=== PATIENT | female | born 1985 | race Caucasian/White ===

== ENCOUNTER 2016-12-23 12:52 | Emergency (ER) | payer MEDICAID ==
[2017-02-23] MEDS ORDERED: CEPH-443 PO (15:00)
== END 2016-12-23 15:40 | disposition home or self-care (01) ==
LOC: FTE 12:52
DX: O20.0 Threatened abortion (principal); O99.52 Diseases of the respiratory system complicating childbirth; J45.909 Unspecified asthma, uncomplicated; Z3A.01 Less than 8 weeks gestation of pregnancy
CPT/HCPCS: 76801; 81001; 84702; 85025; 86900; 86901; Z7502

== ENCOUNTER 2017-02-13 18:00 | Emergency (ER) | payer MEDICAID, OTHER ==
[~2017-02-13] VITALS: Ht 157.5 cm; Wt 78.9 kg
[2017-02-13 18:04] VITALS: Ht 157.5 cm; Wt 78.9 kg
--- NOTE | 2017-02-13 19:38 | ERD ---
ER Documentation Chief Complaint Date/Time DATE: 02/13/17 TIME: 19:29 Chief Complaint 14 weeks with dysuria and back pain x 2 days HPI 29-year-old female presents here in emergency department for complaints of dysuria, lower abdominal pain for 2 days. Patient is approximately 14 weeks . Patient denies any vaginal bleeding. Patient states that she has small amount of urine whenever she is sitting down, urinates more when she stands up. Patient denies any fever or chills. Patient denies any nausea or vomiting. Denies any diarrhea or constipation. ROS All systems reviewed and are negative except as per history of present illness. Medications Home Meds Reported Medications [none] Unknown Strength No Conflict Check 02/13/17 Allergies Allergies: Coded Allergies: No Known Allergy (Unverified , 02/13/17) PMhx/Soc Medical and Surgical Hx: pt denies Medical Hx, pt denies Surgical Hx FmHx Family History: No coronary disease, No diabetes, No other Physical Exam Vitals Vital Signs Date Time Temp Pulse Resp B/P Pulse Ox O2 Delivery O2 Flow Rate FiO2 02/13/17 18:04 98.7 82 18 143/83 99 Physical Exam GENERAL: The patient is well developed and appropriate for usual state of health, in no apparent distress. CHEST: Clear to auscultation bilaterally. There are no rales, wheezes or rhonchi. HEART: Regular rate and rhythm. No murmurs, clicks, rubs or gallops. No S3 or S4. ABDOMEN: Soft, nontender and nondistended. Good bowel sounds. No rebound or guarding. No gross peritonitis. No gross organomegaly or masses. No Liriano sign or McBurney point tenderness. BACK: No midline or flank tenderness. EXTREMITIES: Equal pulses bilaterally. There is no peripheral clubbing, cyanosis or edema. No focal swelling or erythema. Full range of motion. Grossly neurovascularly intact. NEURO: Alert and oriented. Cranial nerves 2-12 intact. Motor strength in all 4 extremities with 5/5 strength. Sensation grossly intact. Normal speech and gait. SKIN: There is no apparent rash or petechia. The skin is warm and dry. HEMATOLOGIC AND LYMPHATIC: There is no evidence of excessive bruising or lymphedema. No gross cervical, axillary, or inguinal lymphadenopathy. Result Diagram: 6/7/17 1935 6/7/17 1935 Results 24 hrs Laboratory Tests Test 02/13/17 19:00 02/13/17 19:35 Urine Color LT. YELLOW Urine Clarity SLIGHTLY CLOUDY Urine pH 6.0 Urine Specific [place] 1.020 Urine Ketones NEGATIVE Urine Nitrite NEGATIVE Urine Bilirubin NEGATIVE Urine Urobilinogen 0.2 E.U./dL Urine Leukocyte Esterase 1+ Urine Microscopic RBC 0-2/HPF Urine Microscopic WBC 25-50/HPF Urine Squamous Epithelial Cells FEW Urine Bacteria RARE Urine Hemoglobin 1+ Urine Glucose NEGATIVE% Urine Total Protein NEGATIVE White Blood Count 14.410^3/ul Red Blood Count 3.8410^6/ul Hemoglobin 11.7g/dl Hematocrit 33.8% Mean Corpuscular Volume 88.0fl Mean Corpuscular Hemoglobin 30.5pg Mean Corpuscular Hemoglobin Concent 34.6g/dl Red Cell Distribution Width 14.7% Platelet Count 57495^3/UL Mean Platelet Volume 10.3fl Neutrophils % 80.3% Lymphocytes % 11.2% Monocytes % 7.0% Eosinophils % 0.9% Basophils % 0.2% Nucleated Red Blood Cells % 0.0/100WBC Neutrophils # 11.610^3/ul Lymphocytes # 1.610^3/ul Monocytes # 1.010^3/ul Eosinophils # 0.110^3/ul Basophils # 0.010^3/ul Nucleated Red Blood Cells # 0.010^3/ul Sodium Level 140mmol/L Potassium Level 3.7mmol/L Chloride Level 106mmol/L Carbon Dioxide Level 23mmol/L Anion Gap 15 Blood Urea Nitrogen 8mg/dl Creatinine 0.55mg/dl Glucose Level 91mg/dl Calcium Level 9.3mg/dl Total Bilirubin 0.1mg/dl Direct Bilirubin 0.00mg/dl Indirect Bilirubin 0.1mg/dl Aspartate Amino Transf (AST/SGOT) 27IU/L Alanine Aminotransferase (ALT/SGPT) 36IU/L Alkaline Phosphatase 84IU/L Total Protein 7.9g/dl Albumin 4.4g/dl Globulin 3.50g/dl Albumin/Globulin Ratio 1.25 Beta HCG, Quantitative 92655.0mIU/ml Current Medications Medications (Trade) Dose Ordered Sig/Blanche Route PRN Reason Start Time Stop Time Status Last Admin Dose Admin Ceftriaxone Sodium (Rocephin) 50 ml @ 100 mls/hr ONCE ONCE IVPB 02/13/17 21:30 02/13/17 21:30 DC Ceftriaxone Sodium (Rocephin) 1 gm ONCE ONCE IM 02/13/17 21:30 02/13/17 21:31 DC 02/13/17 21:19 IV Rocephin was given here in emergency department for treatment for urinary tract infection. PROCEDURE: Obstetrical ultrasound greater than 14 weeks CLINICAL INDICATION: Right lower abdominal pain and back pain TECHNIQUE: Real time sonographic imaging of the gravid uterus is performed transabdominally and multiple static robles scale and Doppler images are submitted for review as are measurements. The images are reviewed on the PACS. COMPARISON: No relevant exams are available FINDINGS: The cervical os is closed with a normal cervical length of 4.0 cm. There is a single living intrauterine gestation in variable presentation. The heart beat is estimated at 143 bpm. The measurements are as follows: BPD: 3.03 cm HC: 11.31 cm AC: 9.30 cm FL: 1.67 cm Estimated gestational age is 15 weeks 3 days. The estimated date of delivery is 08/04/2017. The estimated weight is 119 grams. Placenta is posterior and grade 1. There is no evidence of placenta previa or abruption. The amniotic fluid is normal, the maximum vertical pocket measured at 3.32 cm. The right ovary is visualized and shows normal blood flow measured at 2.2 x 1.3 cm. The left ovary is not visualized RPTAT:HJJR IMPRESSION: 1. Single viable intrauterine gestation estimated at 15 weeks 3 days with the estimated date of delivery 08/04/2017. 2. Posterior grade 1 placenta without abruption. 3. Sonographically normal right ovary, the left ovary is not visualized. Physician Reena Date Time Electronically viewed and signed by Physician Reena on 02/13/2017 21:27 JR/ Procedures/MDM Medical Decision Making: Patient's symptoms most likely consistent with urinary tract infection, patient's back pain abdominal pain can be from the growing . Low suspicion for pyelonephritis. No CVA tenderness noted. Patient is a viable at this time. There is low suspicion for abdominal emergencies at this time. Patients abdominal exam is normal at this time. Patients radiology exam does not show any abdominal emergencies at this time, other radiology exam is not indicated at this time. There is low suspicion for appendicitis, cholecystitis, abdominal aortic aneurysms or peritonitis at this time. There is low suspicion for sepsis. Patient appears well and is hemodynamically stable. Disposition: Home. Condition: Stable Prescription Keflex, Tylenol. Instructions: Patient is advised to take medications as prescribed. Patient is advised to rest, increase fluid intake and do perineal hygiene. Patient is advised that if symptoms are worse, severe abdominal pain, uncontrolled vomiting , high fever, severe flank pain, worst signs and symptoms, to return to the emergency department immediately. Otherwise, patient can follow up with primary care doctor in 5-7 days. Departure Diagnosis: Primary Impression: UTI (urinary tract infection) Urinary tract infection type: acute cystitis Hematuria presence: without hematuria Qualified Code: N30.00 - Acute cystitis without hematuria Additional Impression: Intrauterine Condition: Stable Patient Instructions: Understanding Urinary Tract Infections (UTIs) Additional Instructions: Patient is advised to take medications as prescribed. Patient is advised to rest, increase fluid intake and do perineal hygiene. Patient is advised that if symptoms are worse, severe abdominal pain, uncontrolled vomiting, high fever, severe flank pain, worst signs and symptoms, to return to the emergency department immediately. Otherwise, patient can follow up with primary care doctor in 5-7 days. GUS FUNES NP Feb 13, 2017 19:38
[2017-02-13 19:55] LABS: ADD SCAN DIFF NO
[2017-02-13 19:57] LABS: BASOPHILS % 0.2 % (0.0-2.0); EOSINOPHILS # 0.1 10^3/ul (0.0-0.5); EOSINOPHILS % 0.9 % (0.0-7.0); HEMATOCRIT 33.8 % (37.0-47.0); HEMOGLOBIN 11.7 g/dl (12.0-16.0); LYMPHOCYTES # 1.6 10^3/ul (0.8-2.9); LYMPHOCYTES % 11.2 % (15.0-51.0); MEAN CORPUSCULAR HEMOGLOBIN 30.5 pg (29.0-33.0); MEAN CORPUSCULAR HGB CONC 34.6 g/dl (32.0-37.0); MEAN PLATELET VOLUME 10.3 fl (7.4-10.4); NEUTROPHIL # 11.6 10^3/ul (1.6-7.5); NEUTROPHILS % 80.3 % (39.0-77.0); PLATELET COUNT 279 10^3/UL (140-415); RED BLOOD COUNT 3.84 10^6/ul (4.20-5.40); RED CELL DISTRIBUTION WIDTH 14.7 % (11.5-14.5); WHITE BLOOD COUNT 14.4 10^3/ul (4.8-10.8)
[2017-02-13 20:04] LABS: ADD UMIC YES; URINE BILIRUBIN (Dip) NEGATIVE (NEGATIVE); URINE BLOOD (Dip) 1+ (NEGATIVE); URINE COLOR LT. YELLOW (YELLOW); URINE GLUCOSE (Dip) NEGATIVE (NEGATIVE); URINE KETONES (Dip) NEGATIVE (NEGATIVE); URINE LEUKOCYTE ESTERASE (Dip) 1+ (NEGATIVE); URINE NITRITE (Dip) NEGATIVE (NEGATIVE); URINE TOTAL PROTEIN (Dip) NEGATIVE (NEGATIVE); URINE UROBILINOGEN (Dip) 0.2 E.U./dL (0.1-1.0)
[2017-02-13 20:16] LABS: BACTERIA,URINE RARE; SQUAMOUS EPITHELIAL CELL,UR FEW; URINE RBCS 0-2 /HPF (0)
[2017-02-13 20:17] LABS: ALBUMIN 4.4 g/dl (3.3-4.9); ALBUMIN/GLOBULIN RATIO 1.25; BILIRUBIN,INDIRECT 0.1 mg/dl (0-1.1); BILIRUBIN,TOTAL 0.1 mg/dl (0.2-1.3); CALCIUM 9.3 mg/dl (8.4-10.2); CREATININE 0.55 mg/dl (0.44-1.00); POTASSIUM 3.7 mmol/L (3.5-5.1); TOTAL PROTEIN 7.9 g/dl (6.1-8.1)
--- NOTE | 2017-02-13 21:27 | RADRPT ---
PROCEDURE: Obstetrical ultrasound greater than 14 weeks CLINICAL INDICATION: Right lower abdominal pain and back pain TECHNIQUE: Real time sonographic imaging of the gravid uterus is performed transabdominally and mu ltiple static robles scale and Doppler images are submitted for review as are measurements. The image s are reviewed on the PACS. COMPARISON: No relevant exams are available FINDINGS: The cervical os is closed with a normal cervical length of 4.0 cm. There is a single living intrauterine gestation in variable presentation. The heart beat is e stimated at 143 bpm. The measurements are as follows: BPD:3.03 cm HC:11.31 cm AC:9.30 cm FL:1.67 cm Estimated gestational age is 15 weeks 3 days. The estimated date of delivery is 08/04/2017. The estimated weight is 119 grams. Placenta is posterior and grade 1. There is no evidence of placenta previa or abruption. The amniotic fluid is normal, the maximum vertical pocket measured at 3.32 cm. The right ovary is visualized and shows normal blood flow measured at 2.2 x 1.3 cm. The left ovary is not visualized RPTAT:HJJR IMPRESSION: 1. Single viable intrauterine gestation estimated at 15 weeks 3 days with the estimated date of deli very 08/04/2017. 2. Posterior grade 1 placenta without abruption. 3. Sonographically normal right ovary, the left ovary is not visualized. Physician Reena Date Time Electronically viewed and signed by Physician Reena on 02/13/2017 21:27 /
[2017-02-13] MEDS ORDERED: CEFTRIAXONE 1 GM/50 ML (PMX) 50 ML IVPB ONE (21:30)
[2017-02-13] MEDS ORDERED: CEFTRIAXONE 1 GM INJ IM ONE (21:30)
[2017-02-13] MEDS ORDERED: CEPH-443 PO (21:38)
[2017-02-13] MEDS ORDERED: ACET500C5 PO (21:38)
[2017-02-13 21:48] VITALS: BP 116/63; PULSE 75; RESP 17; TEMP 97.9
== END 2017-02-13 21:48 | disposition home or self-care (01) ==
LOC: FTE 18:00
DX: O23.12 Infections of bladder in pregnancy, second trimester (principal); R10.30 Lower abdominal pain, unspecified; R30.0 Dysuria; Z3A.15 15 weeks gestation of pregnancy
CPT/HCPCS: 36415; 76805; 80053; 81001; 84702; 85025; 86900; 86901; 96372; J0696; Z7502

== ENCOUNTER 2017-05-09 19:54 | Outpatient (CLI) | payer MEDICAID ==
[~2017-05-09] VITALS: Ht 157.5 cm; Wt 76.8 kg
[~2017-05-09 19:54] MED LIST: ACET500C5 PO; CEPH-443 PO
[2017-05-09 20:31] VITALS: Ht 157.5 cm; Wt 76.8 kg
[2017-05-09 20:32] VITALS: BP 117/67; PULSE 76; RESP 18
--- NOTE | 2017-05-09 22:30 | RADRPT ---
PROCEDURE: US evaluation of amniotic fluid volume. Transvaginal sonography of the cervix. CLINICAL INDICATION: labor at 28 weeks gestational age TECHNIQUE: Multiple sonographic images of the gravid uterus were obtained utilizing robles-scale kevin ging. Sagittal and transverse images were obtained. Transvaginal sonography of the cervix was also performed. The images were reviewed on a PACS workstation. INES was measured. COMPARISON: No prior studies are available for comparison. FINDINGS: There is a single live intrauterine . heart rate is 122 beats per minute. Position is cephalic. Placenta is posterior grade 1 with no abruption or previa. INES is 12.5 cm. (Normal = 5-20 cm.) Cervical length is 3.1 cm. IMPRESSION: 1. INES is 12.5 cm. 2. Cervical length is 3.1 cm. RPTAT: QQ .Lukas Campuzano MD, Date Time Electronically viewed and signed by .Lukas Campuzano MD, MD on 05/09/2017 22:29 .R/
--- NOTE | 2017-05-09 22:49 | PN ---
Triage Information Date/Time 05/09/17 Reason for visit: Abd/pelvic pain Weeks of Gestation 28w2d /Para Diabetes: none Objective Vital Signs Date Time Temp Pulse Resp B/P Pulse Ox O2 Delivery O2 Flow Rate FiO2 05/09/17 20:32 98.0 76 18 117/67 Room Air Heart Rate: 130's Contractions: >10 Minutes Apart Exam CVA neg for tenderness Results/Medications Medications on macrobid for UTI Imaging Results CVL 3.1 INES 12.5 Disposition: Discharge Assessment/Plan IUP 28w2d UTI poss round ligament syndrome PLAN discharge home contonue macrobid with increase fluid intake abdominal binder RTH prn with routine labor instructions ZEN RAMIREZ MD May 09, 2017 22:49
--- NOTE | 2017-05-09 23:04 | TRIAGE ---
OB Triage Datetime Report Generated by CPN: 05/09/2017 23:04 Datetime: 05/09/2017 22:41 Stage of : OB Triage Datetime: 05/09/2017 22:31 Stage of : OB Triage Datetime: 05/09/2017 22:02 Monitor Mode: External US FHR Baseline Changes: No Baseline Change Variability: Moderate 6-25 bpm Accelerations: 15X15 Decelerations: None Category: Category I Datetime: 05/09/2017 21:00 Stage of : OB Triage Labor Evaluation Monitor Mode: External Quality: Mild Pattern: Normal: <= 5 Contractions in 10 Minutes Resting Tone Samak: Relaxed Heart Rate FHR Baseline Rate: 140 Monitor Mode: External US FHR Baseline Changes: No Baseline Change Variability: Moderate 6-25 bpm Accelerations: 15X15 Decelerations: None Category: Category I Datetime: 05/09/2017 20:35 Vaginal Exam Membrane Status: Intact Datetime: 05/09/2017 20:25 Stage of : OB Triage Datetime: 05/09/2017 20:13 Assessment Type: Triage Maternal Assessment Level of Consciousness: Fully Conscious DTR's/Clonus: DTRs 2+; No Clonus Headache: Denies Blurred Vision: No Respiratory Effort: Unlabored; Regular Rhythm; Equal Expansion Breath Sounds, Left: Clear and Equal Breath Sounds, Right: Clear and Equal Nausea/Vomiting: Denies RUQ Epigastric Pain: Denies Facial Edema: None Fall Risk Assessment History of Falling: (0) No Secondary Diagnosis: (0) No Ambulatory Aid: (0) Bedrest/Nurse Assist IV Therapy: (0) No Gait: (0) Normal/Bedrest/Immobile Mental Status: (0) Oriented to Own Ability Fall Score: 0 Fall Risk Score Definition: No Risk: No action required Datetime: 05/09/2017 20:12 Stage of : OB Triage Assessment Type: Triage Maternal Assessment Level of Consciousness: Fully Conscious DTR's/Clonus: DTRs 2+; No Clonus Headache: Denies Blurred Vision: No Respiratory Effort: Unlabored; Regular Rhythm; Equal Expansion Breath Sounds, Left: Clear and Equal Breath Sounds, Right: Clear and Equal Nausea/Vomiting: Denies RUQ Epigastric Pain: Denies Facial Edema: None Temperature Route: Axillary Fall Risk Assessment History of Falling: (0) No Secondary Diagnosis: (0) No Ambulatory Aid: (0) Bedrest/Nurse Assist IV Therapy: (0) No Gait: (0) Normal/Bedrest/Immobile Mental Status: (0) Oriented to Own Ability Fall Score: 0 Fall Risk Score Definition: No Risk: No action required Datetime: 05/09/2017 20:10 Time of Arrival: 05/09/2017 19:29 EGA: 28.2 Arrived By: Wheelchair Arrived From: Home Chief Complaint: lower abdominal pain since yesterday, worse today at 1600 Movement: Present Contractions: Occasional Time Contractions Began: 05/09/2017 16:00 Rupture of Membranes: Denies Vaginal Bleeding: None Vaginal Discharge: Denies Recent Sexual Intercouse: Denies Abdominal Trauma: Not Applicable Patient Complaints: Contractions Time Provider Notified: 05/09/2017 20:25 Provider Notified: Dr Davila Initial Plan: EFM, VS Datetime: 05/09/2017 20:09 Time of Arrival: 05/09/2017 19:29 Datetime: 05/09/2017 20:06 Heart Rate FHR Baseline Rate: 135 Monitor Mode: External US FHR Baseline Changes: No Baseline Change Comments: PLACED ON EFM
== END 2017-05-09 22:55 | disposition home or self-care (01) ==
LOC: OBT 19:54 → L-D 19:56 → OBT 22:55
PROVIDERS: ATTEND Obstetrics & Gynecology
DX: O26.892 Other specified pregnancy related conditions, second trimester (principal); R10.2 Pelvic and perineal pain; O23.42 Unspecified infection of urinary tract in pregnancy, second trimester; Z3A.28 28 weeks gestation of pregnancy
CPT/HCPCS: 76815; 76817; Z7500; G0463

== ENCOUNTER 2017-07-23 15:05 | Inpatient (IN) | payer MEDICAID ==
[~2017-07-23] VITALS: Ht 152.4 cm; Wt 82.5 kg
[2017-07-23 15:11] VITALS: BP 117/69; PULSE 80; Ht 152.4 cm; Wt 82.5 kg
[2017-07-23] MEDS ORDERED: HYDROCODONE/APAP (5/325) TAB PO PRN (18:00)
[2017-07-23] MEDS ORDERED: IBUPROFEN 600 MG TAB PO PRN (18:00)
[2017-07-23] MEDS ORDERED: METHYLERGONOVINE 0.2 MG INJ IM PRN (18:00)
[2017-07-23] MEDS ORDERED: LIDOCAINE 1% (MPF) 30 ML INJ INJ PRN (18:00)
[2017-07-23] MEDS ORDERED: CARBOPROST 250 MCG INJ IM PRN (18:00)
[2017-07-23] MEDS ORDERED: MISOPROSTOL 200 MCG TAB PR PRN (18:00)
[2017-07-23] MEDS ORDERED: OXYTOCIN 30 UNITS/LR 500 ML IV PRN (18:00)
[2017-07-23] MEDS ORDERED: BUTORPHANOL 2 MG INJ IV PRN (18:00)
[2017-07-23] MEDS ORDERED: OXYTOCIN 30 UNITS/LR 500 ML IV SCH ×2 (18:00)
--- NOTE | 2017-07-23 18:07 | HP ---
Date/Time of Note Date/Time of Note DATE: 07/23/17 TIME: 17:49 OB - History Hx of Present Free Text/Dictation 32 years old female history of 1 previous section followed with 1 9 years ago admitted to [facility] at 38 weeks and 6 days rule out labor, on admission pelvic examination cervix 3 cm dilated 70% effaced vertex at -3 station patient was informed of potential risk involved with after 9 years including uterine rupture intra-abdominal bleeding risks involved baby in case of uterine rupture, all her questions answered , she will be closely monitored during the course of labor. Chief Complaint: Labor pain Estimated Due Date: Jul 31, 2017 : 3 Para: 2 Care: Good Care Obstetrical Complications: None Medical Complications: None Past Family/Social History * Past Medical, Surgical, Family and Obstetric Histories reviewed from chart. Rubella: immune RPR/VDRL: Negative GBS Status: Negative HBsAG: Negative OB Admission Exam Vital Signs Vital Signs Vital Signs Date Time Temp Pulse Resp B/P Pulse Ox O2 Delivery O2 Flow Rate FiO2 07/23/17 15:11 97.7 80 117/69 Room Air Physical Exam HEENT: WNL Lungs: Clear, Equal Abdomen: WNL Extremities: Normal Cervical Dilatation: 3cm Effacement: Other (70%) Station: -3 Membranes: Intact Accelerations: Accelerations Present Decelerations: No Decelerations Varibility: Moderate Contractions on Admission: >10 Minutes Apart Intensity: Moderate OB Assessment/Plan Reason for admission: other (Early labor) Plan: Expectant Management, Other Other plan: 32 years old female 38 weeks and 6 days with a EDC of July 31, 2017 admitted to the hospital in early labor she has a history of 1 section followed with 1 vaginal delivery she would like to try vaginal delivery with this ,risks and complication which may arise from the vaginal after section, including but not limited to rupture of the uterus, intra-abdominal hemorrhage ,in case of uterine rupture loss of baby, possibility of hysterectomy, blood transfusion she understood all the risks involved, would like to continue labor for vaginal delivery. MOO DUTTA MD Jul 23, 2017 17:59
--- NOTE | 2017-07-23 18:38 | RADRPT ---
PROCEDURE: US OB. CLINICAL INDICATION: Contractions TECHNIQUE: Multiple sonographic images of the pelvis were obtained. The images were reviewed on a PACS workstation. COMPARISON: 05/09/2017 FINDINGS: There is a single viable intrauterine gestation. Cardiac activity is present with 127 beats per min [place]. There is a cephalic presentation. Measurements were made in order to determine age. The results are as follows: BPD =9.04 cm HC =31.99 cm AC =31.91 cm FL =7.05 cm. Estimated gestational age of approximately 36 weeks 1 day. The estimated date of delivery is 08/19/2017. The EFW = 2831 g 8.3% . The placenta is the posterior. There is no evidence for an abruption There is a normal amount of amniotic fluid IMPRESSION: Single viable intrauterine gestation of approximately 36 weeks 1 day. The estimated date of deliver y is 08/19/2017 . .David Geiger MD, Date Time Electronically viewed and signed by .David Geiger MD, on 07/23/2017 18:38 .W/
[2017-07-23] MEDS ORDERED: AMPICILLIN 2 GM/NS (PMX) 100 ML IVPB ONE (19:00)
[2017-07-23] MEDS ORDERED: LACTATED RINGER'S 1,000 ML IV PRN (19:00)
[2017-07-23] MEDS: LACTATED RINGER'S 1,000 ML IV SCH (19:13)
[2017-07-23 19:30] LABS: BASOPHILS % 0.3 % (0.0-2.0); EOSINOPHILS # 0.1 10^3/ul (0.0-0.5); EOSINOPHILS % 0.9 % (0.0-7.0); HEMATOCRIT 31.2 % (37.0-47.0); HEMOGLOBIN 10.4 g/dl (12.0-16.0); LYMPHOCYTES # 2.5 10^3/ul (0.8-2.9); LYMPHOCYTES % 17.4 % (15.0-51.0); MEAN CORPUSCULAR HEMOGLOBIN 28.7 pg (29.0-33.0); MEAN CORPUSCULAR HGB CONC 33.3 g/dl (32.0-37.0); MEAN CORPUSCULAR VOLUME 86.2 fl (82.0-101.0); MONOCYTE # 1.2 10^3/ul (0.3-0.9); MONOCYTES % 8.5 % (0.0-11.0); NEUTROPHIL # 10.2 10^3/ul (1.6-7.5); NEUTROPHILS % 72.6 % (39.0-77.0); PLATELET COUNT 262 10^3/UL (140-415); RED BLOOD COUNT 3.62 10^6/ul (4.20-5.40); RED CELL DISTRIBUTION WIDTH 13.4 % (11.5-14.5); WHITE BLOOD COUNT 14.1 10^3/ul (4.8-10.8)
[2017-07-23 19:46] LABS: INR 0.95; PROTIME 12.7 Sec (12.2-14.2)
[2017-07-23 19:47] LABS: PARTIAL THROMBOPLASTIN TIME 28.7 Sec (25.0-35.0)
[2017-07-23] MEDS ORDERED: AMPICILLIN 1 GM/NS (PMX) 50 ML IVPB SCH (23:00)
[2017-07-24] MEDS: LACTATED RINGER'S 1,000 ML IV SCH ×3 (03:23→20:21)
--- NOTE | 2017-07-24 08:42 | RADRPT ---
PROCEDURE: US biophysical profile. CLINICAL INDICATION: Decreased motion. TECHNIQUE: Multiple sonographic images of the uterus were obtained. The images were revi ewed on a PACS workstation. COMPARISON: No prior studies are available for comparison. FINDINGS: There is a single live intrauterine gestation. heart rate is 141 beats per minute. The position is cephalic. The placenta is posterior grade II with no abruption or previa. The INES is 14.0 cm. (Normal = 5-20 cm.) Breathing Movement: 2 Gross Body Movement: 2 Tone: 2 Qualitative Amniotic Fluid Volume: 2 TOTAL: 8 IMPRESSION: 1. The biophysical score is 8/8. RPTAT: QQ .Lukas Campuzano MD, MD Date Time Electronically viewed and signed by .Lukas Campuzano MD, on 07/24/2017 08:42 .R/
[2017-07-24] MEDS ORDERED: OXYTOCIN 30 UNITS/LR 500 ML IV SCH (10:00)
[2017-07-25] MEDS: LACTATED RINGER'S 1,000 ML IV SCH (04:10)
[2017-07-25] MEDS ORDERED: FENTAnyl 2MCG/ML-ROPIV 0.2% 100 ML ONE (05:49)
--- NOTE | 2017-07-25 12:45 | LDN ---
Date/Time of Note Date/Time of Note DATE: 07/25/17 TIME: 12:41 Delivery Summary Normal spontaneous vaginal delivery of a baby girl from OA position shoulders delivered without any difficulty rest of the baby's body followed cord clamped after stopped pulsation placenta spontaneous expulsion inspected complete perineum/vagina inspected no laceration estimated blood loss 200 cc Weeks of Gestation 39 weeks1 day Placenta Delivered: Spontaneously Meconium: none Episiotomy: No Laceration repair: None Anesthesia type: Epidural Estimated blood loss: 200 Sponge & Needle done & correct: Yes All needle counts correct: Yes Any foreign bodies felt in the: No Problems: Delivery Information Sex Sex: female Apgars 1 Minute: 8 5 Minute: 9 Suctioning Nose & mouth suctioned at musa: Yes Delee suction performed: No Umbilical Cord Umbilical cord with: 3 Vessels Cord presentations: nuchal cord MOO DUTTA MD Jul 25, 2017 12:45
[2017-07-25 15:25] VITALS: BP 109/58; PULSE 66; RESP 18
[2017-07-25] MEDS ORDERED: BENZOCAINE 20% 56 ML SPRAY TOP PRN (16:00)
[2017-07-25] MEDS ORDERED: LANOLIN 7 GM TUBE TOP PRN (16:00)
[2017-07-25] MEDS ORDERED: ACETAMINOPHEN 325 MG TAB PO PRN (16:00)
[2017-07-25] MEDS ORDERED: WITCH HAZEL/GLYCERIN PAD PR PRN (16:00)
[2017-07-25] MEDS ORDERED: HYDROCODONE/APAP (5/325) TAB PO PRN ×2 (16:00)
[2017-07-25] MEDS ORDERED: ONDANSETRON 4 MG INJ IV PRN (16:00)
[2017-07-25] MEDS ORDERED: DIBUCAINE 1% 30 GM OINT TOP PRN (16:00)
[2017-07-25] MEDS ORDERED: OXYCODONE/ASPIRIN (4.88/325) TAB PO PRN ×2 (16:00)
[2017-07-25] MEDS: OXYTOCIN 30 UNITS/LR 500 ML IV SCH ×2 (16:55→19:34)
[2017-07-25] MEDS: IBUPROFEN 600 MG TAB PO SCH ×2 (18:05→23:23)
[2017-07-25 20:00] VITALS: BP 93/54; PULSE 71; RESP 18
[2017-07-25] MEDS: SENNA/DOCUSATE NA (8.6MG/50MG) TAB PO SCH (20:37)
[2017-07-26 04:00] VITALS: BP 95/51; PULSE 75; RESP 18
[2017-07-26] MEDS: IBUPROFEN 600 MG TAB PO SCH ×4 (06:18→23:54)
[2017-07-26 08:30] VITALS: BP 102/56; PULSE 67; RESP 20
[2017-07-26] MEDS: SENNA/DOCUSATE NA (8.6MG/50MG) TAB PO SCH ×2 (09:25→20:21)
--- NOTE | 2017-07-26 09:54 | QN ---
Documentation Comment Post normal vaginal delivery day 1 Afebrile vital signs are stable Abdomen soft, uterus firm, lochia normal, extremities normal MOO DUTTA MD Jul 26, 2017 09:54
[2017-07-26 10:39] LABS: BASOPHILS % 0.2 % (0.0-2.0); EOSINOPHILS # 0.1 10^3/ul (0.0-0.5); EOSINOPHILS % 0.6 % (0.0-7.0); HEMATOCRIT 31.2 % (37.0-47.0); HEMOGLOBIN 10.3 g/dl (12.0-16.0); LYMPHOCYTES # 2.5 10^3/ul (0.8-2.9); LYMPHOCYTES % 16.2 % (15.0-51.0); MEAN CORPUSCULAR HEMOGLOBIN 28.7 pg (29.0-33.0); MEAN CORPUSCULAR VOLUME 86.9 fl (82.0-101.0); MEAN PLATELET VOLUME 11.5 fl (7.4-10.4); MONOCYTE # 0.8 10^3/ul (0.3-0.9); MONOCYTES % 5.2 % (0.0-11.0); NEUTROPHIL # 12.1 10^3/ul (1.6-7.5); NEUTROPHILS % 77.4 % (39.0-77.0); PLATELET COUNT 249 10^3/UL (140-415); RED BLOOD COUNT 3.59 10^6/ul (4.20-5.40); RED CELL DISTRIBUTION WIDTH 13.7 % (11.5-14.5); WHITE BLOOD COUNT 15.6 10^3/ul (4.8-10.8)
[2017-07-26 15:59] VITALS: BP 111/67; PULSE 73; RESP 18
[2017-07-26 20:20] VITALS: BP 105/65; PULSE 70; RESP 21
[2017-07-27 04:00] VITALS: BP 104/60; PULSE 72; RESP 18
[2017-07-27] MEDS: IBUPROFEN 600 MG TAB PO SCH ×2 (05:44→12:00)
[2017-07-27] MEDS ORDERED: MEASLES,MUMPS,RUBELLA VACCINE INJ SC* ONE (09:00)
[2017-07-27] MEDS: SENNA/DOCUSATE NA (8.6MG/50MG) TAB PO SCH (10:06)
--- NOTE | 2017-07-27 11:36 | DS ---
Date/Time of Note Date/Time of Note DATE: 07/27/17 TIME: 11:34 Obstetrical Discharge Record Final Diagnosis Final Diagnosis: Term delivered Vaginal Delivery Obstetrical Delivery: Spontaneous Condition on Discharge Physical Assessment Last Vitals: Current Medications Medications (Trade) Dose Ordered Sig/Blnache Route PRN Reason Start Time Stop Time Status Last Admin Dose Admin Lactated Ringer's (Lr) 1,000 ml @ 125 mls/hr Q8H IV 07/23/17 17:50 07/25/17 15:36 DC 07/25/17 04:10 Butorphanol Tartrate (Stadol) 2 mg Q2H PRN IV PAIN 07/23/17 18:00 07/25/17 15:36 DC Lidocaine 30 ml 30 ml ONCE PRN INJ EPISIOTOMY/TEARING 07/23/17 18:00 07/25/17 15:36 DC Oxytocin/Lactated Ringer's 500 ml @ 125 mls/hr ONCE -MAY REPEAT X1 IV 07/23/17 18:00 07/25/17 15:36 DC 07/25/17 12:26 Oxytocin/Lactated Ringer's 500 ml @ 125 mls/hr ONCE IV 07/23/17 18:00 07/25/17 15:36 DC 07/25/17 12:39 Ibuprofen (Motrin) 600 mg ONCE PRN PO Mild Pain (Pain Score 1-3) 07/23/17 18:00 07/25/17 15:36 DC Acetaminophen/ Hydrocodone Bitart 2 tab 2 tab ONCE PRN PO Moderate to Severe Pain (4-10) 07/23/17 18:00 07/25/17 15:36 DC Lactated Ringer's 1,000 ml @ 2,000 mls/hr Q30M PRN IV PRE-EPIDURAL BOLUS 07/23/17 19:00 07/25/17 15:35 DC 07/25/17 05:50 Oxytocin/Lactated Ringer's 500 ml @ 0 mls/hr ONCE PRN IV For Hemorrhage Management 07/23/17 18:00 07/25/17 15:36 DC Methylergonovine Maleate (Methergine) 0.2 mg ONCE PRN IM VAGINAL BLEEDING 07/23/17 18:00 07/25/17 15:37 DC Carboprost Tromethamine (Hemabate) 250 mcg ONCE PRN IM VAGINAL BLEEDING 07/23/17 18:00 07/25/17 15:37 DC Misoprostol 1000 mcg 1,000 mcg ONCE PRN [place] VAGINAL BLEEDING 07/23/17 18:00 07/25/17 15:37 DC Ampicillin 100 ml @ 100 mls/hr ONCE ONCE IVPB 07/23/17 19:00 07/23/17 19:59 DC 07/23/17 19:14 Ampicillin 50 ml @ 100 mls/hr Q4 IVPB 07/23/17 23:00 07/23/17 23:00 DC Oxytocin/Lactated Ringer's 500 ml @ 0 mls/hr TITRATE IV 07/24/17 10:00 07/25/17 15:36 DC 07/24/17 11:47 Fentanyl/ Ropivacaine 100 ml @ STK-MED ONCE .ROUTE 07/25/17 05:49 07/25/17 05:50 DC Oxytocin/Lactated Ringer's 500 ml @ 125 mls/hr Q4H IV 07/25/17 15:34 07/25/17 23:33 DC 07/25/17 16:55 Ibuprofen (Motrin) 600 mg Q6 PO 07/25/17 18:00 07/27/17 05:44 Acetaminophen (Tylenol Tab) 650 mg Q4H PRN PO PAIN LEVEL 1-5 07/25/17 16:00 Acetaminophen/ Hydrocodone Bitart ([place] (5/325)) 1 tab Q4H PRN PO PAIN LEVEL 1-5 07/25/17 16:00 Acetaminophen/ Hydrocodone Bitart ([place] (5/325)) 2 tab Q4H PRN PO PAIN LEVEL 6-10 07/25/17 16:00 Oxycodone/Aspirin (Percodan) 1 tab Q3H PRN PO PAIN LEVEL 1-5 07/25/17 16:00 Oxycodone/Aspirin (Percodan) 2 tab Q3H PRN PO PAIN LEVEL 6-10 07/25/17 16:00 Ondansetron HCl (Zofran Inj) 4 mg Q6H PRN IV NAUSEA AND/OR VOMITING 07/25/17 16:00 Senna/Docusate Sodium (Senokot-S) 1 tab BID PO 07/25/17 21:00 07/27/17 10:06 Witch Lay/ Glycerin (Tucks Pads) 1 pad BEDSIDE MEDICATION PRN [place] HEMORRHOID/EPISIOTMY PAIN 07/25/17 16:00 07/25/17 16:56 Benzocaine (Dermoplast [place]) 1 spray BEDSIDE MEDICATION PRN TOP HEMORRHOID/EPISIOTMY PAIN 07/25/17 16:00 07/25/17 16:56 Dibucaine (Nupercainal) 1 applic BEDSIDE MEDICATION PRN TOP HEMORRHOID/EPISIOTMY PAIN 07/25/17 16:00 Lanolin (Anu-C-Vqsynq) 1 applic BEDSIDE MEDICATION PRN TOP BEDSIDE FOR AMIRAH TO NIPPLES 07/25/17 16:00 07/25/17 16:57 Measles/Mumps/ Rubella Vaccine Live (Mmr Ii Vaccine) 0.5 ml ONCE ONCE SC* 07/27/17 09:00 07/27/17 09:01 DC Voiding: Yes Bowel Movement: Yes Breast: Soft, non-tender Fundus: Firm Episiotomy: First degree laceration is healing well Calf Tenderness: No Patient Condition: Good VIOLETA REYES MD Jul 27, 2017 11:36
== END 2017-07-27 14:50 | disposition home or self-care (01) | DRG 775 ==
LOC: OBT 15:05 → L-D 15:09 → OBT 17:35 → L-D 17:35 → PP1 07-25 15:23
PROVIDERS: ADMIT Obstetrics & Gynecology; ATTEND Obstetrics & Gynecology
PROC: 10E0XZZ Delivery of Products of Conception, External Approach (ICD-10-PCS; principal; 2017-07-25)
DX: O34.219 Maternal care for unspecified type scar from previous cesarean delivery (principal); Z37.0 Single live birth; Z3A.39 39 weeks gestation of pregnancy
CPT/HCPCS: 62319; 76815; 76818; 85025; 85610; 85730; 86592; 86850; 86900; 86901; 87340; G0463; J0290; J2590; J3010; J7120

== ENCOUNTER 2018-01-14 09:04 | Emergency (ER) | END 2018-01-14 09:42 | disposition home or self-care (01) ==

== ENCOUNTER 2018-07-01 16:04 | Inpatient (IN) | END 2018-07-19 16:17 | disposition home or self-care (01) | DRG 831 ==

== ENCOUNTER 2018-08-27 00:30 | Inpatient (IN) | END 2018-08-29 12:46 | disposition home or self-care (01) | DRG 807 ==

== ENCOUNTER 2018-09-02 00:22 | Emergency (ER) | payer MEDICAID ==
[~2018-09-02] VITALS: Ht 152.4 cm; Wt 78.2 kg
[~2018-09-02 00:22] MED LIST changes: -CEPH-443 PO; +PREN-99 PO
[2018-09-02 00:24] VITALS: Ht 152.4 cm; Wt 78.2 kg
--- NOTE | 2018-09-02 01:18 | ERD ---
ER Documentation Chief Complaint Chief Complaint painful/burning/frequent urination x 1 day. post x 5 days HPI This is a 33-year-old female presents emergency department with complaints of dysuria, burning urination, blood in urine. Stated that she just had a normal vaginal delivery 5 days ago here in the hospital. LMP: A0. Denies headache, head injury, loss of consciousness, dizziness, neck pain, neck stiffness, throat pain, difficulty swallowing, difficulty breathing lying flat, shoulder pain, chest pain, back pain, abdominal pain, nausea, vomiting, constipation, diarrhea, or possibility being , loss of bowel and bladder control, trauma, injury, falls, difficulty walking due to pain, numbness or tingling sensation, calf pain, recent travel, recent major surgery in the last 3 weeks, calf pain, recent long travel, recent exposure to any illness, recent antibiotic use in the last 3 months, fever, chills, seizures. Past medical history: Surgical history: in 2012. Social: Denies smoking, use of alcoholic beverages, use of illegal drugs. ROS All systems reviewed and are negative except as per history of present illness. Medications Home Meds Active Scripts Acetaminophen* (Tylophen*) 500 Mg Capsule, 1 CAP PO Q6H PRN for PAIN AND OR ELEVATED TEMP, #20 CAP Prov:PASILABAN,KLAR F 09/02/18 Cephalexin* (Keflex*) 500 Mg Capsule, 500 MG PO TID for 7 Days, CAP Prov:PASILABAN,KLAR F 09/02/18 Acetaminophen* (Tylophen*) 500 Mg Capsule, 1 CAP PO Q6H PRN for PAIN AND OR ELEVATED TEMP, #30 CAP Prov:LINN BLANCHARD PA-C 01/14/18 Reported Medications Vit #76/Iron,Carb/FA (Pnv 29-1 Tablet) 1 Each Tablet, 1 EACH PO DAILY, TAB 07/01/18 Allergies Allergies: Coded Allergies: No Known Allergy (Unverified , 08/26/18) PMhx/Soc Medical and Surgical Hx: pt denies Medical Hx History of Surgery: Yes () Anesthesia Reaction: No Hx Neurological Disorder: No Hx Respiratory Disorders: Yes (Asthma) Hx Cardiac Disorders: No Hx Psychiatric Problems: No Hx Miscellaneous Medical Probl: No Hx Alcohol Use: No Hx Substance Use: No Hx Tobacco Use: No Smoking Status: Never smoker Physical Exam Vitals Physical Exam Examined with female strapper operator, Alexandra CASTORENA. Const: No acute distress Head: Atraumatic Eyes: Normal Conjunctiva ENT: Normal External Ears, Nose and Mouth. Neck: Full range of motion. No meningismus. Resp: Clear to auscultation bilaterally Cardio: Regular rate and rhythm, no murmurs Abd: Soft, non tender, non distended. Normal bowel sounds. Negative Liriano sign. Negative Aury sign (heel jar test). Negative psoas sign. Negative Rovsing sign. Has suprapubic tenderness to palpation. No CVA tenderness. Ambulatory with steady gait. Skin: No petechiae or rashes. Color appears normal for ethnicity. No paleness. No skin tenting. No signs of dehydration.. Back: No midline or flank tenderness Ext: No cyanosis, or edema Neur: Awake and alert. No neurological deficit. Psych: Normal Mood and Affect Results 24 hrs Laboratory Tests Test 09/02/18 01:33 09/02/18 01:42 Urine Color PRIYANKA Urine Clarity SLIGHTLY CLOUDY Urine pH 6.0 Urine Specific [place] 1.015 Urine Ketones NEGATIVE mg/dL Urine Nitrite POSITIVE mg/dL Urine Bilirubin NEGATIVE mg/dL Urine Urobilinogen 2+ mg/dL Urine Leukocyte Esterase 2+ Ofelia/ul Urine Microscopic RBC 29 /HPF Urine Microscopic WBC > 182 /HPF Urine Squamous Epithelial Cells FEW /HPF Urine Bacteria FEW /HPF Urine Hemoglobin 2+ mg/dL Urine Glucose NEGATIVE mg/dL Urine Total Protein 1+ mg/dl White Blood Count 13.4 10^3/ul Red Blood Count 4.02 10^6/ul Hemoglobin 10.9 g/dl Hematocrit 34.0 % Mean Corpuscular Volume 84.6 fl Mean Corpuscular Hemoglobin 27.1 pg Mean Corpuscular Hemoglobin Concent 32.1 g/dl Red Cell Distribution Width 17.1 % Platelet Count 338 10^3/UL Mean Platelet Volume 10.3 fl Immature Granulocytes % 0.300 % Neutrophils % 78.6 % Lymphocytes % 13.2 % Monocytes % 6.5 % Eosinophils % 1.3 % Basophils % 0.1 % Nucleated Red Blood Cells % 0.0 /100WBC Immature Granulocytes # 0.040 10^3/ul Neutrophils # 10.6 10^3/ul Lymphocytes # 1.8 10^3/ul Monocytes # 0.9 10^3/ul Eosinophils # 0.2 10^3/ul Basophils # 0.0 10^3/ul Nucleated Red Blood Cells # 0.0 10^3/ul Prothrombin Time 11.5 Sec Prothrombin Time Ratio 0.9 INR International Normalized Ratio 0.83 Activated Partial Thromboplast Time 28.2 Sec Sodium Level 141 mmol/L Potassium Level 3.9 mmol/L Chloride Level 105 mmol/L Carbon Dioxide Level 23 mmol/L Anion Gap 13 Blood Urea Nitrogen 11 mg/dl Creatinine 0.63 mg/dl Est Glomerular Filtrat Rate mL/min > 60 mL/min Glucose Level 104 mg/dl Calcium Level 8.8 mg/dl Total Bilirubin 0.2 mg/dl Direct Bilirubin 0.00 mg/dl Indirect Bilirubin 0.2 mg/dl Aspartate Amino Transf (AST/SGOT) 32 IU/L Alanine Aminotransferase (ALT/SGPT) 47 IU/L Alkaline Phosphatase 187 IU/L Total Protein 7.5 g/dl Albumin 3.8 g/dl Globulin 3.70 g/dl Albumin/Globulin Ratio 1.02 Procedures/MDM Diagnostic tests: Urinalysis: UTI. Culture urine: Sent. Blood works: Reviewed. Treatment: Not applicable. Re-evaluation: Not in distress. Differential diagnosis I have low suspicion for sepsis, nephrolithiasis, pyelonephritis, septic stone, obstructing kidney stone. Final diagnosis: UTI. Prescription: Keflex. Tylenol. Follow-up with PCP in the next 24-48 hours. Follow-up with media monitor in the next 24-48 hours. Come back here in the emergency department for any new symptoms or any worsening symptoms. All questions and concerns were answered. Patient and family members verbalized understanding and agreed with plan of care. Hemodynamically stable on discharge. Departure Diagnosis: Primary Impression: UTI (urinary tract infection) Condition: Stable Additional Instructions: Follow-up with PCP in the next 24-48 hours. Follow-up with media monitor in the next 24-48 hours. Come back here in the emergency department for any new symptoms or any worsening symptoms. MIKE WATSON Sep 02, 2018 01:18
[2018-09-02] MEDS ORDERED: CEPH-443 PO (03:13)
[2018-09-02] MEDS ORDERED: ACET500C5 PO (03:14)
[2018-09-02 03:37] VITALS: BP 122/69; PULSE 67; RESP 20
== END 2018-09-02 03:39 | disposition home or self-care (01) ==
LOC: FTE 00:22
DX: O86.20 Urinary tract infection following delivery, unspecified (principal); J45.909 Unspecified asthma, uncomplicated; O99.53 Diseases of the respiratory system complicating the puerperium; B96.20 Unspecified Escherichia coli [E. coli] as the cause of diseases classified elsewhere; R31.9 Hematuria, unspecified
CPT/HCPCS: 80053; 81001; 85025; 85610; 85730; 87086; Z7502; 99283

== ENCOUNTER 2019-04-14 06:49 | Observation (INO) | payer MEDICAID ==
[2019-04-13 16:46] VITALS: BMI 31.2
[~2019-04-14] VITALS: Ht 147.3 cm; Wt 76.5 kg
[2019-04-14] VITALS (33 sets, daily range): BP systolic 104–133; BP diastolic 50–70; PULSE 58–82; RESP 13–30; Ht 147.3 cm; Wt 76.5 kg
[~2019-04-14 06:49] MED LIST changes: +CEPH-443 PO
[2019-04-14] MEDS ORDERED: LACTATED RINGER'S 1,000 ML (ENTER RATE) IV ONE (07:00)
--- NOTE | 2019-04-14 08:53 | PREAC ---
Date/Time of Note Date/Time of Note DATE: 04/14/19 TIME: 08:52 Anesthesia Eval and Record Evaluation Time Pre-Procedure Interview DATE: 04/14/19 TIME: 08:52 Age 34 Sex female NPO: 8 hrs Preoperative diagnosis desires BTL Planned procedure Laparotomy with BTL Past Medical History Past Medical History: Includes GI: Obesity Surgery & Anesthesia Issues No known issue Meds Anticoagulation: No Beta Kari within 24 hr: No Reason Beta Kari not given: Pt. not on B-Kari Active Scripts Acetaminophen* (Tylophen*) 500 Mg Capsule, 1 CAP PO Q6H PRN for PAIN AND OR ELEVATED TEMP, #20 CAP Prov:PASILABAN,KLAR F 09/02/18 Cephalexin* (Keflex*) 500 Mg Capsule, 500 MG PO TID for 7 Days, CAP Prov:PASILABAN,KLAR F 09/02/18 Acetaminophen* (Tylophen*) 500 Mg Capsule, 1 CAP PO Q6H PRN for PAIN AND OR ELEVATED TEMP, #30 CAP Prov:LINN BLANCHARD PA-C 01/14/18 Reported Medications Vit #76/Iron,Carb/FA (Pnv 29-1 Tablet) 1 Each Tablet, 1 EACH PO DAILY, TAB 07/01/18 Current Medications Lactated Ringer's 1,000 ml @ 125 mls/hr Q8H ONCE IV ; Start 04/14/19 at 07:00; Stop 04/14/19 at 14:59 Meds reviewed: Yes Allergies Coded Allergies: No Known Allergy (Unverified , 04/13/19) Allergies Reviewed: Yes Labs/Studies Labs Reviewed: Reviewed by anesthesiologist test: Negative Pre-procedure Exam Last vitals Vital Signs Date Temp Pulse Resp B/P (MAP) Pulse Ox O2 O2 Flow FiO2 Time Delivery Rate 04/14/19 97.0 62 16 120/68 98 Room Air 08:45 (85) Airway: Adequate mouth opening, Adequate thyromental dist Mallampati: Mallampati II Teeth: Normal Lung: Normal Heart: Normal ASA Physical Status ASA physical status: 2 Emergency: None Planned Anesthetic General/MAC: ETT Nerve block: TAP (bilateral) Pre-operative Attestations Prior to commencing anesthesia and surgery, the patient was re-evaluated, there was verification of: *The patient's identity *The results of appropriate recent lab work and preoperative vital signs *The above evaluation not changing prior to induction *Anesthetic plan, risk benefits, alternative and complications discussed with patient/family; questions answered; patient/family understands, accepts and wishes to proceed. ARISTIDES HEREDIA Apr 14, 2019 08:53
[2019-04-14] MEDS ORDERED: DIPHENHYDRAMINE 50 MG INJ IV PRN (09:00)
[2019-04-14] MEDS ORDERED: METOCLOPRAMIDE 10 MG INJ IV PRN (09:00)
[2019-04-14] MEDS ORDERED: FENTAnyl 50 MCG/ML VIAL IV PRN ×3 (09:00)
[2019-04-14] MEDS ORDERED: HYDROmorphONE 1 MG/5 ML IV SYRINGE IV PRN ×3 (09:00)
[2019-04-14] MEDS ORDERED: ALBUTEROL 0.083% (NEB) 2.5 MG/3 ML AMP HHN PRN (09:00)
[2019-04-14] MEDS ORDERED: ONDANSETRON 4 MG INJ IV PRN (09:00)
[2019-04-14] MEDS ORDERED: DESFLURANE 15 MIN ONE (09:30)
[2019-04-14] MEDS ORDERED: GLYCOPYRROLATE 0.4 MG INJ ONE (09:30)
[2019-04-14] MEDS ORDERED: FENTAnyl 50 MCG/ML VIAL ONE (09:34)
[2019-04-14] MEDS ORDERED: ROPIVACAINE 0.5 % 30 ML VIAL ONE (09:35)
[2019-04-14] MEDS ORDERED: SUGAMMADEX SODIUM 200 MG/2 ML VIAL IV ONE (10:16)
[2019-04-14] MEDS ORDERED: CEFAZOLIN 1 GM INJ ONE (10:16)
[2019-04-14] MEDS ORDERED: PROPOFOL 20 ML ONE (10:16)
[2019-04-14] MEDS ORDERED: SUCCINYLCHOLINE CHLORIDE 100 MG/5 ML SYG IV ONE (10:16)
[2019-04-14] MEDS ORDERED: ROCURONIUM 50 MG INJ ONE (10:16)
[2019-04-14] MEDS ORDERED: LIDOCAINE 100 MG SYRINGE ONE (10:16)
--- NOTE | 2019-04-14 11:01 | SIPON ---
Date/Time of Note Date/Time of Note DATE: 04/14/19 TIME: 10:59 Operative Report Preoperative Diagnosis multiparity for tubal sterilization Postoperative Diagnosis same Operation/Procedure Performed minilap bilateral partial salphingectomy Surgeon see signature line child care assistant DARWIN ochoa Anesthesia: general, other (tap block) Estimated blood loss: minimal Transfusion Required none Specimen portion of bilateral follopian tubes Grafts/Implants none Complications none ZEN RAMIREZ MD Apr 14, 2019 11:01
[2019-04-14] MEDS ORDERED: PROVENTIL HFA 6.7GM INHALER ONE (11:05)
[2019-04-14] MEDS ORDERED: DEXAMETHASONE 4 MG/ML 5 ML INJ ONE (11:16)
[2019-04-14] MEDS: IBUPROFEN 600 MG TAB PO SCH ×3 (12:47→23:22)
[2019-04-14] MEDS ORDERED: ONDANSETRON 4 MG INJ ONE (16:05)
--- NOTE | 2019-04-14 23:15 | PAC ---
Date/Time of Note Date/Time of Note DATE: 04/14/19 TIME: 23:15 Post-Anesthesia Notes Post-Anesthesia Note Last documented vital signs Vital Signs Date Temp Pulse Resp B/P (MAP) Pulse Ox O2 O2 Flow FiO2 Time Delivery Rate 04/14/19 98.0 60 17 114/57 93 20:19 (76) 04/14/19 Room Air 19:09 04/14/19 2.0 18:49 Activity: WNL Respiratory function: WNL Cardiovascular function: WNL Mental status: Baseline Pain reasonably controlled: Yes Hydration appropriate: Yes Nausea/Vomiting absent: Yes ARISTIDES HEREDIA Apr 14, 2019 23:15
[2019-04-15 00:41] VITALS: BP 111/60; PULSE 73; RESP 18
[2019-04-15] MEDS: IBUPROFEN 600 MG TAB PO SCH ×3 (06:03→19:12)
[2019-04-15 07:39] VITALS: BP 106/57; PULSE 75; RESP 14
[2019-04-15 14:01] VITALS: BP 98/53; PULSE 70; RESP 14
[2019-04-15 19:10] VITALS: BP 115/65; PULSE 60; RESP 20
--- NOTE | 2019-04-16 23:06 | PD.PPDC ---
MATERIAL PLANNING ANALYST Discharge Instruction Diagnosis [id number] Final Diagnosis: [id number] s/p BTL /minilap Condition [id number] Patient Condition: [id number] Stable Diet [id number] Diet: Kixcs1u Resume Regular Diet Activity/Restrictions [id number] Activity: Iajuu0t May Shower [id number] Restrictions: Lbjee2l No Lifting Minimize Stair-climbing Nothing in the Vagina No Beemer No Tampons, douche Wound/Drain Care Instructions [id number] Wound/Drain Care Instructions: Qrvva1n Wash with soap and water Keep clean and dry Follow-up Follow-up with Physician: 2, Week/Weeks Return to clinic for [id number] MANAGEMENT AIDE Instructions: Tylbr4t Fever greater than 101 Chills Worsening abdominal pain Excessive Vaginal Bleeding More than 2 pads per hour Unable to tolerate diet [id number] Surgical Instructions: [id number] Incisional Drainage Incisional Redness ZEN RAMIREZ MD Apr 16, 2019 23:06
--- NOTE | 2019-04-17 00:53 | OPR ---
DATE OF OPERATION: 04/14/2019 PREOPERATIVE DIAGNOSIS: Multiparity for tubal sterilization. POSTOPERATIVE DIAGNOSIS: Multiparity for tubal sterilization. As mini OPERATION PERFORMED: Mini laparotomy, bilateral partial salpingectomy, Brooks. ANESTHESIA: General and TAP block. ANESTHESIOLOGIST: Fredeirck Osman MD SURGEON: Warren Davila MD ESTIMATED BLOOD LOSS: Minimal. PROCEDURE IN DETAILS: Under proper induction of general anesthesia, the patient was placed in the fr og position. Ledesma catheter was introduced into bladder under sterile condition, repositioned to sup ine. Abdominal wall was prepped and draped in usual aseptic manner. A transverse incision was made on the incisional scar in the middle, approximately 5 cm in length. Incision was carried down throug h the subcutaneous tissue to the anterior recti fascia which was incised transversely in length of th e incision. Fascial flap was created by blunt and sharp dissection of tendinous attachment cephalad and caudad and the 2 rectus muscles split in the midline. Peritoneal cavity was entered. The small Darrius was inserted and the bowel was packed away with lap and right fallopian tube was identified, t raced to the fimbriated end. On avascular area in the mesosalpinx, loop of tube was created. This w as doubly ligated with 0 plain and loop of tube was excised. Tubal lumen was cauterized. No bleedin g noted. On the other tube on the left side traced to the fimbriated end and avascular and mesosalpi nx and created loop of tube, this loop of tube was doubly ligated with 0 plain and loop of tube was e xcised. The tubal lumen was cauterized. No bleeder was noted. The Darrius was removed and the lap c ount was correct. Parietal peritoneum was closed using 0 chromic catgut in continuous manner, muscle was closed with 0 chromic catgut in continuous manner. Fascia was closed with #1 Vicryl in continuo us manner in 2 segments. Subcutaneous tissue was irrigated with water. This layer was approximated with a 2-0 plain in continuous manner after adequate hemostasis was secured. Skin was closed with a 4-0 Monocryl in subcuticular manner. Steri-Strip was applied. A pressure dressing was applied. The patient withstood procedure well and was sent to the recovery room in stable condition. Dictated By: WARREN OWEN/VINCENT Conf#: [id number] DID#: [id number]
== END 2019-04-15 19:50 | disposition home or self-care (01) ==
LOC: SDS 06:49 → OBSVTOIN 12:03 → REC 12:03 → INTOOBSV 12:03 → SDS 12:03 → EDBD 13:00 → MS1 18:50
PROVIDERS: ADMIT Obstetrics & Gynecology; ATTEND Obstetrics & Gynecology
DX: Z30.2 Encounter for sterilization (principal)
CPT/HCPCS: 58600; 80048; 81001; 85025; 85610; 85730; 88302; J0690; J1100; J1170; J2001; J2405; J2765; J2795; J3010; Z7500; Z7512; Z7610; 99217; G0378